=== PATIENT | female | born 1965 | race Caucasian/White ===

== ENCOUNTER 2021-06-14 23:30 | Observation (INO) | payer BC, SELFPAY ==
[~2021-06-14] VITALS: Ht 157.5 cm; Wt 49.9 kg
[2021-06-14 23:57] VITALS: BP_SYST 161
--- NOTE | 2021-06-15 00:02 | NUR ---
Patient triaged and placed in waiting room. VS checked and patient appears in no acute distress at this time. Accompanied by self , awaiting available bed, and MD notified of need for MSE.
[2021-06-15] MEDS ORDERED: ONDANSETRON 4 MG ODT TAB PO ONE ×2 (00:15→04:15)
[2021-06-15] MEDS ORDERED: MECLIZINE HCL 25 MG TABLET (ANITVERT) PO ONE (00:15)
--- NOTE | 2021-06-15 01:00 | NUR ---
No episodes of vomiting noted since Zofran ODT was given
[2021-06-15 01:01] LABS: BASOPHILS % (AUTO) 0.3 % (0.0-2.0); HEMATOCRIT 41.2 % (36-48); HEMOGLOBIN 14.3 g/dL (12.0-16.0); LYMPHOCYTES # (AUTO) 0.7 K/uL (1.0-5.5); LYMPHOCYTES % (AUTO) 8.7 % (20.5-51.5); MEAN CORPUSCULAR HEMOGLOBIN 30 pg (27-31); MEAN CORPUSCULAR HGB CONC 35 % (32-36); MEAN CORPUSCULAR VOLUME 87 fL (79.0-98.0); MONOCYTES # (AUTO) 0.3 K/uL (0.0-1.0); MONOCYTES % (AUTO) 3.1 % (1.7-9.3); NEUTROPHILS # (AUTO) 7.3 K/uL (1.8-7.7); NEUTROPHILS % (AUTO) 87.9 % (40.0-70.0); PLATELET COUNT (AUTO) 225 K/uL (130-430); RED BLOOD CELL COUNT(AUTO) 4.76 MIL/uL (4.2-6.2); RED CELL DISTRIBUTION WIDTH 13.5 % (9.0-15.0); WHITE BLOOD COUNT (AUTO) 8.3 K/uL (4.8-10.8)
[2021-06-15 01:16] LABS: ANION GAP 12 (5-15); CALCIUM 9.5 mg/dL (8.4-11.0); CHLORIDE 99 mmol/L (98-107); CREATININE 0.55 mg/dL (0.55-1.30); GLUCOSE 140 mg/dL (70-99); POTASSIUM 3.8 mmol/L (3.5-5.1); SODIUM SERUM 134 mmol/L (136-145); UREA NITROGEN, BLOOD 12 mg/dL (8-21)
[2021-06-15 01:17] LABS: GFR AFRICAN AMERICAN 148 mL/min (>90)
[2021-06-15 01:25] LABS: ALANINE AMINOTRANSFERASE 28 U/L (12-78); ASPARTATE AMINOTRANSFERASE 22 U/L (10-37); TOTAL BILIRUBIN 0.3 mg/dL (0.0-1.0)
[2021-06-15 01:26] LABS: ALCOHOL, BLOOD < 3 mg/dL (<10); PROTHROMBIN TIME 10.5 SECS (9.5-12.5)
--- NOTE | 2021-06-15 03:55 | NUR ---
Patient to ER bed 3 for evaluation. Side rails up.
--- NOTE | 2021-06-15 04:19 | NUR ---
56 YR OLD AOX4, FEMALE WITH COMPLAINT OF NEW ONSET DIZZYNESS WITH NAUSEA FOR ONE DAY. PT REPORTS BEING UNABLE TO WALK, STATES "ITS LIKE IM DRUNK, UNABLE TO BALANCE". PT DENIES ANY HEALTH HISTORY. 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 WILL MONITOR NEEDED
[2021-06-15] MEDS ORDERED: LORazepam 2 MG/ML VIAL IVP ONE (04:30)
[2021-06-15] MEDS ORDERED: ONDANSETRON HCL 4 MG/2 ML VIAL IVP PRN (06:30)
--- NOTE | 2021-06-15 06:40 | NUR ---
Admit bed requested Patient will be admitted to care of Admitted to MS unit. Diagnosis Intractable Vertigo Inpatient (Yes or No) no Observation (Yes or No) no Orientation concerns or request close to nursing station (Yes or No) Covid Status pending On vent or bipap no Isolation requirements no Needs a sitter no From Home (Yes or if No enter name of facility) yes Requires Dialysis (Yes or No) no Med Rec Completed (Yes of No) no Addendum: 06/15/21 at 0819 by [id number] Admit bed requested Patient will be admitted to care of . Admitted to med surg unit. Diagnosis vertigo Inpatient (Yes or No) no Observation (Yes or No) yes Orientation concerns or request close to nursing station (Yes or No) no Covid Status neg On vent or bipap no Isolation requirements no Needs a sitter no From Home (Yes or if No enter name of facility) home Requires Dialysis (Yes or No) n0 Med Rec Completed (Yes of No) yes
--- NOTE | 2021-06-15 07:02 | NUR ---
PRINCESS MCINTYRE SWAB OBTAINED AND SENT TO LAB
[2021-06-15] MEDS ORDERED: MECLIZINE HCL 25 MG TABLET (ANITVERT) PO PRN (08:00)
--- NOTE | 2021-06-15 08:21 | NUR ---
skin assessment intact no breakdown
--- NOTE | 2021-06-15 09:17 | NUR ---
pt eating at bedside
[2021-06-15 09:50] LABS: BILIRUBIN,URINE NEGATIVE (NEGATIVE); BLOOD, URINE 1+ (NEGATIVE); CLARITY/URINE CLEAR (CLEAR); COLOR,URINE YELLOW (YELLOW); GLUCOSE,URINE NEGATIVE (NEGATIVE); KETONES,URINE 1+ (NEGATIVE); LEUKOCYTE ESTERASE ,URINE NEGATIVE (NEGATIVE); NITRITE, URINE NEGATIVE (NEGATIVE); PROTEIN URINE TRACE (NEGATIVE); UROBILINOGEN,URINE 0.2 (0.2-1.0)
[2021-06-15 09:59] LABS: WBC,URINE 0-3 /HPF (0-3)
[2021-06-15 10:00] LABS: BACTERIA,URINE FEW /HPF (None Seen); MUCUS,URINE 2+ /LPF (None Seen)
[2021-06-15 10:08] LABS: BARBITURATE, URINE NEGATIVE (NEG <=200); BENZODIAZEPINE, URINE NEGATIVE (NEG <=150); CANNABINOID, URINE NEGATIVE (NEG <=50); COCAINE, URINE NEGATIVE (NEG <=150); METHAMPHETAMINES SCREEN,URINE NEGATIVE (NEG <=500); OPIATE, URINE NEGATIVE (NEG <=100); PHENCYCLIDINE SCREEN,URINE NEGATIVE (NEG <=25); UR TRICYCLIC ANTIDEPRESSANTS NEGATIVE (NEG <=300); URINE AMPHETAMINE NEGATIVE (NEG <=500); URINE METHADONE NEGATIVE (NEG <=200); URINE OXYCODONE SCREEN NEGATIVE (NEG <=100); URINE PROPOXYPHENE SCREEN NEGATIVE (NEG <=300)
[2021-06-15] MEDS: NACL 0.9% 1,000 ML IV SCH ×2 (10:21→22:20)
--- NOTE | 2021-06-15 10:25 | NUR ---
Dr Nieto at bedside with patient
--- NOTE | 2021-06-15 14:26 | NUR ---
Patient will be admitted to care of [facility]. Admitted to MS unit. Will go to room 103B. Belongings list completed. Complete and up to date summary report printed. SBAR report to be given at bedside with opportunity for questions.
--- NOTE | 2021-06-15 14:39 | NUR ---
CONSULTATION PAGED/CALLED Reason for Consultation: [] INTRACTABLE VERTIGO Person Who was Notified: [] DR Lucy VASQUEZ Consulting Physician: [] DR Lucy VASQUEZ Director Athletic Specialty: [] NEURO Ordering Physician: [] DR BREEN
[2021-06-15 15:51] VITALS: BP_SYST 135
[2021-06-15 16:00] VITALS: BP_SYST 148
[2021-06-15 23:32] LABS: BARBITURATE, URINE NEGATIVE (NEG <=200); BENZODIAZEPINE, URINE NEGATIVE (NEG <=150); CANNABINOID, URINE NEGATIVE (NEG <=50); COCAINE, URINE NEGATIVE (NEG <=150); METHAMPHETAMINES SCREEN,URINE NEGATIVE (NEG <=500); OPIATE, URINE NEGATIVE (NEG <=100); PHENCYCLIDINE SCREEN,URINE NEGATIVE (NEG <=25); UR TRICYCLIC ANTIDEPRESSANTS NEGATIVE (NEG <=300); URINE AMPHETAMINE NEGATIVE (NEG <=500); URINE METHADONE NEGATIVE (NEG <=200); URINE OXYCODONE SCREEN NEGATIVE (NEG <=100); URINE PROPOXYPHENE SCREEN NEGATIVE (NEG <=300)
[2021-06-16] VITALS: BP_SYST 128
--- NOTE | 2021-06-16 07:16 | NUR ---
CLOSING NOTE ENDORSED CARE TO DAY SHIFT. PT IS SITING UP IN BED ON HER TABLET. NO APPARENT DISTRESS NOTED AT THIS TIME. PT DENIES ANY DIZZINESS OR NAUSEA. PT COMPLAINING OF A 3/10 HEADACHE. IV FLUIDS RUNNING ORDERED. BED IN LOWEST POSITION. SAFETY PRECAUTIONS IN PLACE CALL LIGHT WITHIN REACH
[2021-06-16 08:00] VITALS: BP_SYST 138
[2021-06-16] MEDS: NACL 0.9% 1,000 ML IV SCH (08:00)
--- NOTE | 2021-06-16 08:00 | NUR ---
Initial notes Assisted to the bathroom and voided, a little unsteady, denies any dizziness but complain of slight headache. Denies any pain, no distress. call light within reach.
--- NOTE | 2021-06-16 10:00 | NUR ---
Notes Watching on her IPAD, at bedside. No distress noted.
[2021-06-16 12:01] VITALS: BP_SYST 144
--- NOTE | 2021-06-16 13:00 | NUR ---
Notes Patient refusing to stay 0ne more night and wants to go home, at bedside and stated that he can take care of her at home and already spoke to neurologist night. Patient able to ambulate with supervision at this time. Dizziness is better per patient. will call MD for discharge.
[2021-06-16] MEDS ORDERED: MECL-160 PO (14:16)
[2021-06-16] MEDS ORDERED: ONDA4VIA52 IVP (14:16)
[2021-06-16 14:30] VITALS: BP_SYST 147
--- NOTE | 2021-06-16 14:45 | NUR ---
Discharge home accompanied by . denies any pain, dizziness at this time. Discharge instruction and e-script explain to patient and family. verbalize understanding. IVL removed.
--- NOTE | 2021-06-24 09:52 | NUR ---
IV ADMINISTRATION END TIME (Observation Patients ONLY): Late entry: IV infusion of Nsaline at 80ml/hr started at 10:21 on 06/15 and ended at 22:20 on 06/15. IV infusion of Nsaline at 80ml/hr started at 22:20 on 06/15 and discontinued at 14:30 prior to pt's discharge on 06/16 at 14:45
== END 2021-06-16 14:45 | disposition home or self-care (01) ==
LOC: SED 23:30 → SMU 06-15 06:25
PROVIDERS: ADMIT General Practice; ATTEND General Practice
DX: H81.10 Benign paroxysmal vertigo, unspecified ear (principal); Z20.822 Contact with and (suspected) exposure to COVID-19; E87.1 Hypo-osmolality and hyponatremia; K30 Functional dyspepsia; G90.9 Disorder of the autonomic nervous system, unspecified; I10 Essential (primary) hypertension; Z79.899 Other long term (current) drug therapy; Z91.81 History of falling
CPT/HCPCS: 36415; 70450; 76376; 80053; 80307; 81000; 84443; 84484; 85025; 85610; 85730; 87426; 93005; 96360; 96361 ×2; 99285; G0378 ×2; G0482; J8597; Q0162; J2405